=== PATIENT | female | born 1935 | race Caucasian/White ===

== ENCOUNTER 2020-07-25 12:19 | Emergency (ER) | payer MEDICARE, MEDICAID, SELFPAY ==
[2020-07-25 12:27] VITALS: BP 138/67; PULSE 81; RESP 16; TEMP 36.8; O2SAT 100; BMI 27.4
[2020-07-25 12:36] VITALS: O2SAT 96
--- NOTE | 2020-07-25 12:38 | XRR_ITS ---
PROCEDURE INFORMATION: Exam: XR Chest, 1 View Exam date and time: 07/25/2020 12:57 PM Age: 84 years old Clinical indication: Cough and dyspnea; Additional info: Dyspnea/cough TECHNIQUE: Imaging protocol: XR of the chest Views: 1 view. COMPARISON: CR Chest 1 [place] [id number] 05/19/2016 3:17 PM FINDINGS: Lungs: Mild interstitial prominence diffusely possibly chronic. Correlate. Calcified granuloma right upper lobe Pleural space: Unremarkable. No pleural effusion. No pneumothorax. Heart/Mediastinum: Unremarkable. No cardiomegaly. Bones/joints: Unremarkable. XR/XR chest 1V portable [id number] IMPRESSION: Mild interstitial prominence diffusely possibly chronic. Correlate. No focal consolidation. Consider CT if indicated.
--- NOTE | 2020-07-25 12:39 | CT_ITS ---
WS: [id number] CT ABDOMEN PELVIS TECHNIQUE: Contrast-enhanced CT of the abdomen and pelvis with coronal and sagittal reformatted image s. CLINICAL INFORMATION: abd pain COMPARISON: None. DLP: 1450.[address] scans at [facility] use at least one of these dose optimization techniques: automat ed exposure control; mA and/or kV adjustment per patient size (includes targeted exams where dose is matched to clinical indication); or iterative reconstruction. FINDINGS: No comparisons Normal liver. Normal portal vein and splenic vein. Small esophageal hiatal hernia. Normal visualized pancreas. Pancreatic fatty atrophy. Adrenal glands are normal. Normal renal parenchymal enhancement. Renal cortical atrophy. Moderate right hydronephrosis with pelvocaliectasis and dilatation of the pro ximal UPJ. Mid and distal ureter are normal. 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 Peripelvic left renal cysts. Prominent left renal pelvis. Left proximal ureter is normal. No obstr ucting renal or ureteral calculi. Chronic emphysematous changes in the lung bases. Subsegmental atelectasis with interstitial thickenin g lung bases. Trace bilateral pleural fluid. Small esophageal hiatal hernia. Aortic calcification. No aneurysm. Sigmoid constipation. Diverticulosis. No evidence of acute diverticulitis. No free fluid i n the pelvis. Chronic appearing biconcave endplate compression deformities with anterior wedging lowe r thoracic and lumbar spine. CT/CT abdomen pelvis w con* [id number] IMPRESSION: 1. Right hydronephrosis with pelvocaliectasis. Normal right mid and distal ure ter. 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 This may be long-standing and could be followed up with CT urogram. 2. Otherwise normal renal parenchymal enhancement with mild cortical atrophy. 3. Normal caliber abdominal aorta. 4. No free fluid in the abdomen or pelvis. 5. Sigmoid constipation. 6. Subsegmental atelectasis the lung bases with trace pleural fluid. 7. Chronic appearing wedge compression deformities in the lower thoracic and l umbar spine. Notified Konstantin Alejandra DO at 07/25/2020 3:45 PM.
--- NOTE | 2020-07-25 12:39 | CT_ITS ---
WS: [id number] CT HEAD TECHNIQUE: Noncontrast CT of the head obtained from the skullbase to the vertex. CLINICAL INFORMATION: AMS COMPARISON: 6 20,016 DLP: 984.[address] scans at [facility] use at least one of these dose optimization techniques: automat ed exposure control; mA and/or kV adjustment per patient size (includes targeted exams where dose is matched to clinical indication); or iterative reconstruction. FINDINGS: No evidence of intracranial hemorrhage or mass effect. Ventricular system and basal cisterns are brock nt. Moderate small vessel changes with moderate parenchymal volume loss. No extra-axial fluid collect ions. No evidence of mass or mass effect. Normal shankar-white differentiation. Paranasal sinuses and mastoid air cells are well aerated. Prior postoperative changes frontal sinus o uter table craniectomy with mesh fixation. CT/CT head wo con* [id number] IMPRESSION: 1. No evidence of intracranial hemorrhage or mass effect. 2. Moderate small vessel changes. Moderate parenchymal volume loss. 3. Postoperative changes frontal sinus. 4. No acute intracranial findings. Notified Konstantin Alejandra DO at 07/25/2020 3:32 PM.
--- NOTE | 2020-07-25 13:21 | W.ED.AMS ---
HPI - Altered Mental Status General: Chief Complaint: Altered Mental Status Stated Complaint: AMS Time Seen by Provider: 07/25/20 12:25 History of Present Illness: HPI narrative: 84-year-old female altered mental status. Usually she is reported to be at the [facility] ambulatory and somewhat conversational she does have a history of dementia and is in the dementia roberts there is also a history of seizures. She had no witnessed seizures today EMS reported she became more responsive in route to the hospital. When she is here she will answer questions for me but answers them randomly yes and no when asked nonsensical question she still answers yes or no. Even when the response makes no sense. MD complaint: altered mental status and confusion Onset (ago): hour(s) Severity: moderate Consistency of symptoms: Waxing and Waning Context: seizure disorder and other (Dementia) Review of Systems General: Reports: ROS unobtainable due to medical condition and ROS unobtainable due to mental status PFSH ED PFSH: Medical History (Updated 07/25/20 @ 15:52 by Konstantin Alejandra DO) Dementia Seizures Physical Exam Const: COMMON NORMALS: no acute distress HENMT: COMMON NORMALS: normocephalic and atraumatic HEAD & SCALP: normocephalic and atraumatic Eye: COMMON NORMALS: Equal, round and reactive pupils present, conjunctivae normal and no scleral icterus CONJUNCTIVA: Yes conjunctivae normal PUPIL: Yes Equal, round and reactive pupils present Neck/C-Spine: COMMON NORMALS: no JVD Resp: COMMON NORMALS: normal respiratory effort, No retractions, No use of accessory muscles and clear to auscultation bilaterally AUSCULTATION: clear to auscultation bilaterally Cardio: COMMON NORMALS: no JVD, regular rate, regular rhythm and No murmurs present (Cardio) RATE: regular rate RHYTHM: regular rhythm GI: COMMON NORMALS: Soft to palpation and No hepatosplenomegaly present AUSCULTATION: Yes normoactive bowel sounds PALPATION: Yes Soft to palpation, No Tenderness to palpation present (GI), No Guarding due to palpation present (GI) and Yes No hepatosplenomegaly present Extremity: COMMON NORMALS: normal to inspection, capillary refill normal, no clubbing, cyanosis or edema, no calf tenderness and no pedal edema Skin: COMMON NORMALS: no rashes or lesions noted GENERAL SKIN EXAM: no rashes or lesions noted Course Vital Signs: Vital signs: Vital Signs Temperature 98.2 F 07/25/20 12:27 Pulse Rate 99 07/25/20 16:55 Respiratory Rate 20 H 07/25/20 16:55 Blood Pressure 144/87 07/25/20 16:55 Pulse Oximetry 93 07/25/20 16:55 MDM - Altered Mental Status MDM Narrative: Medical decision making narrative: Labs and imaging unremarkable patient appears to be at baseline no signs of infection discharge back to nursing room Lab Data: Labs: Lab Results 07/25/20 07/25/20 07/25/20 Range/Units 13:24 13:24 13:24 WBC 8.9 (4.0-10.0) 10^3/ uL RBC 4.97 (4.1-5.3) 10^6/u L Hgb 14.4 (11.5-15.3) g/dL Hct 48.2 H (37.0-47.0) % MCV 97.0 (81-99) fL MCH 29.0 (28.0-34.0) pg MCHC 29.9 L (30.0-36.0) g/dL RDW 14.4 (12.1-15.1) % Plt Count 261 (130-400) 10^3/c mm MPV 10.2 (7.4-10.4) fL Neut % (Auto) 72.3 % Lymph % (Auto) 14.0 % [place] % (Auto) 9.9 % Eos % (Auto) 2.8 % Baso % (Auto) 0.5 % Neut # (Auto) 6.43 (1.8-7.7) 10^3/u L Lymph # (Auto) 1.2 (0.8-4.8) 10^3/u L King[place] # (Auto) 0.9 (0.2-0.9) 10^3/u L Eos # (Auto) 0.3 (0.0-0.8) 10^3/u L Baso # (Auto) 0.0 (0.0-0.1) 10^3/u L Nucleated RBC % (a uto) 0 % Nucleated RBCs # 0.0 /100WBC Sodium 138 (136-145) mmol/L Potassium 4.6 (3.5-5.1) mmol/L Chloride 101 (98-107) mmol/L Carbon Dioxide 25 (22-29) mmol/L Anion Gap 16.6 (5-19) BUN 12 (8-23) mg/dL Creatinine 0.5 (0.5-0.9) mg/dL GFR Calculation Not Reportable Glucose 107 (65-115) mg/dL Calculated Osmolal ity 283 L (285-295) mOsm/k g Lactic Acid 2.0 (0.5-2.2) mmol/L Calcium 8.9 (8.5-10.5) mg/dL Magnesium 2.3 (1.7-2.3) mg/dL Total Bilirubin 0.2 (0.15-1.2) mg/dL AST 27 (0-32) U/L ALT 25 (0-33) U/L Alkaline Phosphata se 132 H (35-105) IU/L Creatine Kinase 50 (26-192) U/L Total Protein 7.0 (6.6-8.7) g/dL Albumin 3.7 (3.5-5.2) g/dL Globulin 3.3 (1.3-4.6) g/dL Lipase 46 (13-60) U/L Urine Color (Yellow) Urine Appearance (CLEAR) Urine pH (5-7) Ur Specific Gravit y (1.005-1.030) Urine Protein (Negative) Urine Glucose (UA) (Normal) Urine Ketones (Negative) Urine Blood (Negative) Urine Nitrate (Negative) Urine Bilirubin (NEGATIVE) Urine Urobilinogen (Negative) mg/dL Ur Leukocyte Akanksha ase (Negative) Urine RBC (0-2) /hpf Urine WBC (0-5) /hpf Ur Squamous Epith Cells (0-5) Ur Transition Epit h Cell /hpf Amorphous Sediment Urine Bacteria (NONE) 07/25/20 Range/Units 14:35 WBC (4.0-10.0) 10^3/ uL RBC (4.1-5.3) 10^6/u L Hgb (11.5-15.3) g/dL Hct (37.0-47.0) % MCV (81-99) fL MCH (28.0-34.0) pg MCHC (30.0-36.0) g/dL RDW (12.1-15.1) % Plt Count (130-400) 10^3/c mm MPV (7.4-10.4) fL Neut % (Auto) % Lymph % (Auto) % Kingman % (Auto) % Eos % (Auto) % Baso % (Auto) % Neut # (Auto) (1.8-7.7) 10^3/u L Lymph # (Auto) (0.8-4.8) 10^3/u L Kingman # (Auto) (0.2-0.9) 10^3/u L Eos # (Auto) (0.0-0.8) 10^3/u L Baso # (Auto) (0.0-0.1) 10^3/u L Nucleated RBC % (a uto) % Nucleated RBCs # /100WBC Sodium (136-145) mmol/L Potassium (3.5-5.1) mmol/L Chloride (98-107) mmol/L Carbon Dioxide (22-29) mmol/L Anion Gap (5-19) BUN (8-23) mg/dL Creatinine (0.5-0.9) mg/dL GFR Calculation Glucose (65-115) mg/dL Calculated Osmolal ity (285-295) mOsm/k g Lactic Acid (0.5-2.2) mmol/L Calcium (8.5-10.5) mg/dL Magnesium (1.7-2.3) mg/dL Total Bilirubin (0.15-1.2) mg/dL AST (0-32) U/L ALT (0-33) U/L Alkaline Phosphata se (35-105) IU/L Creatine Kinase (26-192) U/L Total Protein (6.6-8.7) g/dL Albumin (3.5-5.2) g/dL Globulin (1.3-4.6) g/dL Lipase (13-60) U/L Urine Color Yellow (Yellow) Urine Appearance Hazy A (CLEAR) Urine pH 7 (5-7) Ur Specific Gravit y 1.015 (1.005-1.030) Urine Protein Neg (Negative) Urine Glucose (UA) Norm (Normal) Urine Ketones Negative (Negative) Urine Blood Neg (Negative) Urine Nitrate Negative (Negative) Urine Bilirubin Neg (NEGATIVE) Urine Urobilinogen Norm (Negative) mg/dL Ur Leukocyte Akanksha ase Negative (Negative) Urine RBC 0-4 H (0-2) /hpf Urine WBC None (0-5) /hpf Ur Squamous Epith Cells 10-15 H (0-5) Ur Transition Epit h Cell 0-4 /hpf Amorphous Sediment 1+ Urine Bacteria 1+ H (NONE) Discharge Plan Discharge Patient Disposition: Home Clinical Impression: Dementia Condition: Stable Prescriptions: No Action acetaminophen 325 mg Tablet 650 mg PO Q6H PRN (Reason: Pain) RF: 0 donepezil 5 mg Tablet 10 mg PO BEDTIME RF: 0 trihexyphenidyl 0.4 mg/mL Elixir 2 mg PO DAILY RF: 0 hydrocodone-acetaminophen 5-325 mg Tablet 1 tab PO BID PRN (Reason: Pain) RF: 0 Zofran 4 mg Tablet 4 mg PO Q6H PRN (Reason: Nausea) RF: 0 Senna-S 8.6-50 mg Tablet 1 tab-cap PO BID RF: 0 Dilantin Extended 100 mg Capsule 200 mg PO BID RF: 0 guaifenesin 100 mg/5 mL Liquid 200 mg PO Q4H PRN (Reason: Cough) RF: 0 Milk of Magnesia 400 mg/5 mL Suspension 400 mg PO DAILY PRN (Reason: Constipation) RF: 0 Dulcolax (bisacodyl) 10 mg Suppository 10 mg NH DAILY PRN (Reason: constipation) RF: 0 aspirin 81 mg Tablet,Chewable 81 mg PO DAILY RF: 0 acetaminophen 80 mg Suppository 80 mg NH Q6H PRN (Reason: Fever) RF: 0 Risperdal 0.5 mg Tablet 0.5 mg PO BID RF: 0 calcitonin (salmon) 200 unit/mL Solution 200 unit IM DAILY RF: 0 Risperdal Consta 12.5 mg/2 mL Suspension,Extended Rel Recon 12.5 mg IM Q10D RF: 0 Artificial Tears (PF) 0.1-0.3 % Dropperette 1 drp OPHTHALMIC (EYE) DAILY RF: 0 28 mg iron- 800 mcg Tablet 1 tab PO DAILY RF: 0 Discharge Orders: Discharge Order (Routine); Ordered 07/25/20 Ordered By: Konstantin Alejandra Discharge Diet: Usual diet Discharge Activity: Resume usual activity Discharge Date/Time: 07/25/20 17:11 Coding Level of Care Code 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
[2020-07-25 13:26] VITALS: BP 146/84; PULSE 88; RESP 19; O2SAT 93
[2020-07-25 13:31] LABS: Basophils % 0.5 %; Eosinophils # 0.3 10^3/uL (0.0-0.8); Eosinophils % 2.8 %; Hematocrit 48.2 % (37.0-47.0); Hemoglobin 14.4 g/dL (11.5-15.3); Lymphocytes # 1.2 10^3/uL (0.8-4.8); Mean Corpuscular HGB Conc 29.9 g/dL (30.0-36.0); Mean Platelet Volume 10.2 fL (7.4-10.4); Monocytes # 0.9 10^3/uL (0.2-0.9); Monocytes % 9.9 %; Neutrophils # 6.43 10^3/uL (1.8-7.7); Neutrophils % 72.3 %; Nucleated Red Blood Cells % 0 %; Platelet Count 261 10^3/cmm (130-400); Red Blood Count 4.97 10^6/uL (4.1-5.3); Red Cell Distribution Width 14.4 % (12.1-15.1); White Blood Count 8.9 10^3/uL (4.0-10.0)
[2020-07-25] MEDS: sodium chloride 0.9% 500 ML 999 ML IV (14:05)
[2020-07-25 14:07] VITALS: BP 137/64; PULSE 85; RESP 17; O2SAT 94
[2020-07-25 15:02] LABS: Alanine Aminotransferase 25 U/L (0-33); Albumin Level 3.7 g/dL (3.5-5.2); Alkaline Phosphatase 132 IU/L (35-105); Blood Urea Nitrogen 12 mg/dL (8-23); Calcium 8.9 mg/dL (8.5-10.5); Carbon Dioxide 25 mmol/L (22-29); Chloride 101 mmol/L (98-107); Creatine Phosphokinase 50 U/L (26-192); Globulin 3.3 g/dL (1.3-4.6); Glucose 107 mg/dL (65-115); Lipase 46 U/L (13-60); Magnesium 2.3 mg/dL (1.7-2.3); Osmolality Calculated 283 mOsm/kg (285-295); Sodium 138 mmol/L (136-145); Total Bilirubin 0.2 mg/dL (0.15-1.2)
[2020-07-25 15:07] LABS: Anion Gap 16.6 (5-19)
[2020-07-25 15:08] LABS: Aspartate Amino Transferase 27 U/L (0-32); Potassium 4.6 mmol/L (3.5-5.1)
[2020-07-25 15:08] LABS: Add Urine Microscopic? YES; Bilirubin Urine Neg (NEGATIVE); Blood Urine Neg (Negative); Glucose Urine UA Norm (Normal); Ketones Urine Negative (Negative); Leukocyte Esterase Urine Negative (Negative); Nitrate Urine Negative (Negative); Protein Urine Neg (Negative); Specific Gravity, Urine 1.015 (1.005-1.030); Urine Appearance Hazy (CLEAR); Urine Color Yellow (Yellow); Urobilinogen Urine Norm (Negative); pH Urine 7 (5-7)
--- NOTE | 2020-07-25 15:08 | PC.NURSE ---
pt to CT by stretcher with tech
[2020-07-25] MEDS: iohexol 300 mg/mL 100 mL Btl IV (15:16)
[2020-07-25 15:25] LABS: Add Urine Culture? No; Amorphous Sediment Urine 1+; RBC Urine 0-4 /hpf (0-2)
[2020-07-25 15:26] LABS: Bacteria Urine 1+; Transitional Epi Cells Urine 0-4 /hpf
[2020-07-25 16:00] VITALS: BP 136/64; PULSE 90; RESP 17; O2SAT 95
[2020-07-25 16:55] VITALS: BP 144/87; PULSE 99; RESP 20; O2SAT 93
== END 2020-07-25 17:11 | disposition home or self-care (01) ==
PROVIDERS: Emergency Provider Family Medicine; Family Provider Nurse Practitioner Family
DX: F03.90 Unspecified dementia, unspecified severity, without behavioral disturbance, psychotic disturbance, mood disturbance, and anxiety (principal); Z79.82 Long term (current) use of aspirin
CPT/HCPCS: 12345; 36415; 51701; 70450; 71045; 74177; 80053; 81001; 82550; 83605; 83690; 83735; 85025; 87040; 96360; 96361; 99283; 99284; J7040; Q9967

== ENCOUNTER 2021-08-05 14:19 | Emergency (ER) | payer MEDICARE, MEDICAID, SELFPAY ==
[2021-08-05 14:24] VITALS: BP 122/54; PULSE 86; RESP 18; TEMP 36.4; O2SAT 97; BMI 20.9
--- NOTE | 2021-08-05 14:30 | ECG_ITS ---
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
--- NOTE | 2021-08-05 14:31 | XRR_ITS ---
PROCEDURE INFORMATION: Exam: XR Chest Exam date and time: 08/05/2021 2:31 PM Age: 85 years old Clinical indication: Cough; Patient HX: PT unable to give history; Additional info: Shortness of breath TECHNIQUE: Imaging protocol: XR of the chest. Views: 1 view. COMPARISON: CR XR chest 1V portable [id number] 07/25/2020 1:04 PM FINDINGS: Lungs: There is continue interstitial prominence compatible with fibrosis with slightly increased interstitial markings compared to the prior study compatible with progression of fibrosis versus superimposed bronchitis, viral pneumonitis or mild interstitial edema. No lobar consolidation. Mild enlargement of the right hilum is unchanged. Pleural spaces: Unremarkable. No pleural effusion. No pneumothorax. Heart/Mediastinum: Unremarkable. No cardiomegaly. Bones/joints: No acute abnormality. XR/XR chest 1V portable [id number] IMPRESSION: There is continue interstitial prominence compatible with fibrosis with slightly increased interstitial markings compared to the prior study compatible with progression of fibrosis versus superimposed bronchitis, viral pneumonitis or mild interstitial edema.
--- NOTE | 2021-08-05 14:48 | W.ED.SOB ---
Documented by User: Konstantin Alejandra DO 08/08/21 12:48 HPI - SOB/Dyspnea General: Chief Complaint: Shortness of Breath/Dyspnea Stated Complaint: CHF EXACERBATION Time Seen by Provider: 08/05/21 14:38 History of Present Illness: HPI Narrative: 85 yo female present to the ER with complaint of [facility] the [facility]. Complaining of a history of CHF with productive cough of clear fluid increasing swelling of the lower extremities. She is not had a fever she had a rapid Covid test this morning at the prison which was negative. She has moderate amount of dementia. She is on 2 L of oxygen by nasal cannula which is her standard her sats are maintaining normal. MD elicited complaint: shortness of breath and cough Pertinent past history: congestive heart failure Onset (ago): hour(s) Timing: constant Severity: mild Exacerbating factors: nothing Relieving factors: nothing Known history of: congestive heart failure Associated symptoms: Reports chest congestion, cough and orthopnea; Deny abdominal pain, chest pain, diaphoresis, dizziness, extremity pain, fever(s), hemoptysis, lightheadedness, myalgias, nausea, palpitations, paresthesias, polydipsia, polyuria, rash, sense of impending doom, syncope or vomiting Treatment prior to arrival: oxygen Review of Systems Const: Denies: fever(s) or diaphoresis ENMT: Denies: throat pain, ear or mastoid pain, nasal discharge or nasal congestion Card: Reports: orthopnea; Denies: chest pain, palpitations, lightheadedness or syncope Resp: Reports: chest congestion; Denies: hemoptysis GI: Denies: abdominal pain, nausea or vomiting : Denies: flank pain, difficulty voiding, dysuria, urinary frequency or urinary urgency Musc: Denies: extremity pain Skin/Breast: Denies: rash or pruritus Neuro: Denies: dizziness Endo: Denies: polyuria or polydipsia PFSH ED PFSH: Medical History Dementia Seizures Physical Exam Const: COMMON NORMALS: no acute distress GENERAL APPEARANCE: cooperative and comfortable HENMT: COMMON NORMALS: normocephalic, atraumatic and hearing grossly normal bilaterally HEAD & SCALP: normocephalic and atraumatic Neck/C-Spine: COMMON NORMALS: no JVD Resp: COMMON NORMALS: normal respiratory effort, No retractions and No use of accessory muscles AUSCULTATION: crackles Cardio: COMMON NORMALS: no JVD, regular rate, regular rhythm and No murmurs present (Cardio) RATE: regular rate RHYTHM: regular rhythm GI: COMMON NORMALS: Soft to palpation and No hepatosplenomegaly present AUSCULTATION: Yes normoactive bowel sounds PALPATION: Yes Soft to palpation, No Tenderness to palpation present (GI), No Guarding due to palpation present (GI) and Yes No hepatosplenomegaly present Extremity: COMMON NORMALS: normal to inspection and no calf tenderness GENERAL: Yes edema (Bilateral lower extremity) Skin: COMMON NORMALS: no rashes or lesions noted GENERAL SKIN EXAM: no rashes or lesions noted Course Vital Signs: Vital signs: Vital Signs Temperature 97.6 F 08/05/21 21:19 Pulse Rate 77 08/05/21 21:19 Respiratory Rate 18 08/05/21 21:19 Blood Pressure 132/65 08/05/21 21:19 Pulse Oximetry 98 08/05/21 21:19 MDM - SOB/Dyspnea MDM Narrative: Medical decision making narrative: Care turned over to Dr. Astorga at change of see his note for final diagnosis and disposition. Lab Data: Labs: Lab Results 08/05/21 08/05/21 08/05/21 Range/Units 15:35 15:35 15:35 WBC 9.3 (4.0-10.0) 10^3/ uL RBC 4.35 (4.1-5.3) 10^6/u L Hgb 13.1 (11.5-15.3) g/dL Hct 43.0 (37.0-47.0) % MCV 98.9 (81-99) fl MCH 30.1 (28.0-34.0) pg MCHC 30.5 (30.0-36.0) g/dL RDW 13.4 (12.1-15.1) % Plt Count 333 (130-400) 10^3/c mm MPV 9.5 (7.4-10.4) fL Neut % (Auto) 69.5 % Lymph % (Auto) 17.3 % [place] % (Auto) 9.8 % Eos % (Auto) 2.7 % Baso % (Auto) 0.4 % Neut # (Auto) 6.43 (1.8-7.7) 10^3/u L Lymph # (Auto) 1.6 (0.8-4.8) 10^3/u L [place] # (Auto) 0.9 (0.2-0.9) 10^3/u L Eos # (Auto) 0.3 (0.0-0.8) 10^3/u L Baso # (Auto) 0.0 (0.0-0.1) 10^3/u L Nucleated RBC % (a uto) 0 % Nucleated RBCs # 0.0 /100WBC Sodium 142 (136-145) mmol/L Potassium 4.7 (3.5-5.1) mmol/L Chloride 103 (98-107) mmol/L Carbon Dioxide 30 H (22-29) mmol/L Anion Gap 13.7 (5-19) BUN 17 (8-23) mg/dL Creatinine 0.4 L (0.5-0.9) mg/dL GFR Calculation Not Reportable Glucose 121 H (65-115) mg/dL Calculated Osmolal ity 297 H (285-295) mOsm/k g Calcium 8.4 L (8.5-10.5) mg/dL Total Bilirubin 0.2 (0.15-1.2) mg/dL AST 20 (0-32) U/L ALT 19 (0-33) U/L Alkaline Phosphata se 114 H (35-105) IU/L Troponin T Gen 5 n g/L Cancelled Troponin T Baselin e (0-10) ng/L Troponin T 120 Min [place] (0-10) ng/L Delta Troponin T (0-10) ABS# NT-Pro-B Natriuret Pep (0-450) pg/mL Total Protein 6.3 L (6.6-8.7) g/dL Albumin 3.5 (3.5-5.2) g/dL Globulin 2.8 (1.3-4.6) g/dL 08/05/21 08/05/21 08/05/21 Range/Units 15:35 15:35 17:41 WBC (4.0-10.0) 10^3/ uL RBC (4.1-5.3) 10^6/u L Hgb (11.5-15.3) g/dL Hct (37.0-47.0) % MCV (81-99) fl MCH (28.0-34.0) pg MCHC (30.0-36.0) g/dL RDW (12.1-15.1) % Plt Count (130-400) 10^3/c mm MPV (7.4-10.4) fL Neut % (Auto) % Lymph % (Auto) % [place] % (Auto) % Eos % (Auto) % Baso % (Auto) % Neut # (Auto) (1.8-7.7) 10^3/u L Lymph # (Auto) (0.8-4.8) 10^3/u L [place] # (Auto) (0.2-0.9) 10^3/u L Eos # (Auto) (0.0-0.8) 10^3/u L Baso # (Auto) (0.0-0.1) 10^3/u L Nucleated RBC % (a uto) % Nucleated RBCs # /100WBC Sodium (136-145) mmol/L Potassium (3.5-5.1) mmol/L Chloride (98-107) mmol/L Carbon Dioxide (22-29) mmol/L Anion Gap (5-19) BUN (8-23) mg/dL Creatinine (0.5-0.9) mg/dL GFR Calculation Glucose (65-115) mg/dL Calculated Osmolal ity (285-295) mOsm/k g Calcium (8.5-10.5) mg/dL Total Bilirubin (0.15-1.2) mg/dL AST (0-32) U/L ALT (0-33) U/L Alkaline Phosphata se (35-105) IU/L Troponin T Gen 5 n g/L Troponin T Baselin e 26 H (0-10) ng/L Troponin T 120 Min [place] 20.95 H (0-10) ng/L Delta Troponin T -5.05 L (0-10) ABS# NT-Pro-B Natriuret Pep 387 (0-450) pg/mL Total Protein (6.6-8.7) g/dL Albumin (3.5-5.2) g/dL Globulin (1.3-4.6) g/dL Discharge Plan Discharge Patient Disposition: Home Clinical Impression: Chest pain Qualifiers: Chest pain type: unspecified Qualified Code(s): R07.9 - Chest pain, unspecified Dyspnea Qualifiers: Dyspnea type: unspecified Qualified Code(s): R06.00 - Dyspnea, unspecified Condition: Stable Prescriptions: No Action donepezil 5 mg Tablet 10 mg PO BEDTIME@1999 RF: 0 trihexyphenidyl 0.4 mg/mL Elixir 2 mg PO DAILY@799 RF: 0 hydrocodone-acetaminophen 5-325 mg Tablet 1 tab PO BID@ RF: 0 ondansetron HCl [Zofran] 4 mg Tablet 4 mg PO Q6H PRN (Reason: Nausea) RF: 0 sennosides-docusate sodium [Senna-S] 8.6-50 mg Tablet 1 tab-cap PO BID@ RF: 0 phenytoin sodium extended [Dilantin Extended] 100 mg Capsule 200 mg PO BID@ RF: 0 guaifenesin 100 mg/5 mL Liquid 200 mg PO Q4H PRN (Reason: Cough) RF: 0 magnesium hydroxide [Milk of Magnesia] 400 mg/5 mL Suspension 400 mg PO DAILY PRN (Reason: Constipation) RF: 0 bisacodyl [Dulcolax (bisacodyl)] 10 mg Suppository 10 mg MS DAILY PRN (Reason: constipation) RF: 0 risperidone [Risperdal] 0.5 mg Tablet 0.5 mg PO DAILY@0800 RF: 0 Risperdal Consta 12.5 mg/2 mL Suspension,Extended Rel Recon 12.5 mg IM Q10D RF: 0 PNV cmb#95-ferrous fumarate-FA [] 28 mg iron- 800 mcg Tablet 1 tab PO DAILY@0800 RF: 0 potassium chloride 10 mEq Tablet Extended Release 10 meq PO DAILY@0800 RF: 0 levothyroxine 50 mcg tablet 50 mcg PO DAILY RF: 0 Lasix 20 mg Tablet 20 mg PO DAILY@0800 RF: 0 Miralax 17 gram/dose Powder 17 g PO BID@ RF: 0 Zyprexa 5 mg Tablet 5 mg PO DAILY RF: 0 Risperdal 0.25 mg Tablet 0.25 mg PO BEDTIME@1999 RF: 0 triamcinolone acetonide 0.1 % Cream 1 applic TOPICAL BID PRN (Reason: RED, FLAKY AREA) RF: 0 Discharge Orders: Discharge ED (Routine); Ordered 08/05/21 Ordered By: Macrina Astorga Discharge Diet: Advance as tolerated Discharge Activity: Resume usual activity Patient Instructions: Chest Pain (ED), Dyspnea (ED) Coding Level of Care Code ED Business Solutions Director for Chg Fwd Documented by User: Macrina Astorga MD 08/05/21 20:41 HPI - SOB/Dyspnea General: Chief Complaint: Shortness of Breath/Dyspnea Stated Complaint: CHF EXACERBATION Time Seen by Provider: 08/05/21 14:38 PFSH ED PFSH: Medical History Dementia Seizures Course Vital Signs: Vital signs: Vital Signs Temperature 97.6 F 08/05/21 21:19 Pulse Rate 77 08/05/21 21:19 Respiratory Rate 18 08/05/21 21:19 Blood Pressure 132/65 08/05/21 21:19 Pulse Oximetry 98 08/05/21 21:19 MDM - SOB/Dyspnea MDM Narrative: Medical decision making narrative: I took patient over from Dr. Oshea. Patient was [facility] from [facility] with some dyspnea and complaints chest pain. Patient does have severe dementia. His initial repeat troponins are negative and BNP here is normal as well. I did give her 1 dose of IV Lasix and I believe she is stable for discharge back to the prison. She is to follow-up PCP and return if worsening. Lab Data: Labs: Lab Results 08/05/21 08/05/21 08/05/21 Range/Units 15:35 15:35 15:35 WBC 9.3 (4.0-10.0) 10^3/ uL RBC 4.35 (4.1-5.3) 10^6/u L Hgb 13.1 (11.5-15.3) g/dL Hct 43.0 (37.0-47.0) % MCV 98.9 (81-99) fl MCH 30.1 (28.0-34.0) pg MCHC 30.5 (30.0-36.0) g/dL RDW 13.4 (12.1-15.1) % Plt Count 333 (130-400) 10^3/c mm MPV 9.5 (7.4-10.4) fL Neut % (Auto) 69.5 % Lymph % (Auto) 17.3 % [place] % (Auto) 9.8 % Eos % (Auto) 2.7 % Baso % (Auto) 0.4 % Neut # (Auto) 6.43 (1.8-7.7) 10^3/u L Lymph # (Auto) 1.6 (0.8-4.8) 10^3/u L [place] # (Auto) 0.9 (0.2-0.9) 10^3/u L Eos # (Auto) 0.3 (0.0-0.8) 10^3/u L Baso # (Auto) 0.0 (0.0-0.1) 10^3/u L Nucleated RBC % (a uto) 0 % Nucleated RBCs # 0.0 /100WBC Sodium 142 (136-145) mmol/L Potassium 4.7 (3.5-5.1) mmol/L Chloride 103 (98-107) mmol/L Carbon Dioxide 30 H (22-29) mmol/L Anion Gap 13.7 (5-19) BUN 17 (8-23) mg/dL Creatinine 0.4 L (0.5-0.9) mg/dL GFR Calculation Not Reportable Glucose 121 H (65-115) mg/dL Calculated Osmolal ity 297 H (285-295) mOsm/k g Calcium 8.4 L (8.5-10.5) mg/dL Total Bilirubin 0.2 (0.15-1.2) mg/dL AST 20 (0-32) U/L ALT 19 (0-33) U/L Alkaline Phosphata se 114 H (35-105) IU/L Troponin T Gen 5 n g/L Cancelled Troponin T Baselin e (0-10) ng/L Troponin T 120 Min [place] (0-10) ng/L Delta Troponin T (0-10) ABS# NT-Pro-B Natriuret Pep (0-450) pg/mL Total Protein 6.3 L (6.6-8.7) g/dL Albumin 3.5 (3.5-5.2) g/dL Globulin 2.8 (1.3-4.6) g/dL 08/05/21 08/05/21 08/05/21 Range/Units 15:35 15:35 17:41 WBC (4.0-10.0) 10^3/ uL RBC (4.1-5.3) 10^6/u L Hgb (11.5-15.3) g/dL Hct (37.0-47.0) % MCV (81-99) fl MCH (28.0-34.0) pg MCHC (30.0-36.0) g/dL RDW (12.1-15.1) % Plt Count (130-400) 10^3/c mm MPV (7.4-10.4) fL Neut % (Auto) % Lymph % (Auto) % [place] % (Auto) % Eos % (Auto) % Baso % (Auto) % Neut # (Auto) (1.8-7.7) 10^3/u L Lymph # (Auto) (0.8-4.8) 10^3/u L [place] # (Auto) (0.2-0.9) 10^3/u L Eos # (Auto) (0.0-0.8) 10^3/u L Baso # (Auto) (0.0-0.1) 10^3/u L Nucleated RBC % (a uto) % Nucleated RBCs # /100WBC Sodium (136-145) mmol/L Potassium (3.5-5.1) mmol/L Chloride (98-107) mmol/L Carbon Dioxide (22-29) mmol/L Anion Gap (5-19) BUN (8-23) mg/dL Creatinine (0.5-0.9) mg/dL GFR Calculation Glucose (65-115) mg/dL Calculated Osmolal ity (285-295) mOsm/k g Calcium (8.5-10.5) mg/dL Total Bilirubin (0.15-1.2) mg/dL AST (0-32) U/L ALT (0-33) U/L Alkaline Phosphata se (35-105) IU/L Troponin T Gen 5 n g/L Troponin T Baselin e 26 H (0-10) ng/L Troponin T 120 Min [place] 20.95 H (0-10) ng/L Delta Troponin T -5.05 L (0-10) ABS# NT-Pro-B Natriuret Pep 387 (0-450) pg/mL Total Protein (6.6-8.7) g/dL Albumin (3.5-5.2) g/dL Globulin (1.3-4.6) g/dL Imaging Data^: CXR: Attestation: I personally reviewed and interpreted this imaging study as follows: Radiologist's impression: [address] [address] XRay Report Signed Patient: Alber Vergara Unit #: [id number] : 1935 Age/Sex: 85 / F ADM Date: 08/05/21 Loc: ER Room/Bed: Attending Dr: Ordering Provider/Ordering MD: Konstantin Alejandra DO Date of Service: 08/05/21 Procedure(s): XR chest 1V portable [id number] Accession Number(s): [id number] Report Number: [id number] PROCEDURE INFORMATION: Exam: XR Chest Exam date and time: 08/05/2021 2:31 PM Age: 85 years old Clinical indication: Cough; Patient HX: PT unable to give history; Additional info: Shortness of breath TECHNIQUE: Imaging protocol: XR of the chest. Views: 1 view. COMPARISON: CR XR chest 1V portable [id number] 07/25/2020 1:04 PM FINDINGS: Lungs: There is continue interstitial prominence compatible with fibrosis with slightly increased interstitial markings compared to the prior study compatible with progression of fibrosis versus superimposed bronchitis, viral pneumonitis or mild interstitial edema. No lobar consolidation. Mild enlargement of the right hilum is unchanged. Pleural spaces: Unremarkable. No pleural effusion. No pneumothorax. Heart/Mediastinum: Unremarkable. No cardiomegaly. Bones/joints: No acute abnormality. XR/XR chest 1V portable [id number] IMPRESSION: There is continue interstitial prominence compatible with fibrosis with slightly increased interstitial markings compared to the prior study compatible with progression of fibrosis versus superimposed bronchitis, viral pneumonitis or mild interstitial edema. Dictated By: Lorelei Morrell Signed By: Lorelei Morrell Signed Date/Time: 08/05/211521 DD/ 19 Discharge Plan Discharge Patient Disposition: Home Clinical Impression: Chest pain Qualifiers: Chest pain type: unspecified Qualified Code(s): R07.9 - Chest pain, unspecified Dyspnea Qualifiers: Dyspnea type: unspecified Qualified Code(s): R06.00 - Dyspnea, unspecified Condition: Stable Prescriptions: No Action donepezil 5 mg Tablet 10 mg PO BEDTIME@1999 RF: 0 trihexyphenidyl 0.4 mg/mL Elixir 2 mg PO DAILY@0800 RF: 0 hydrocodone-acetaminophen 5-325 mg Tablet 1 tab PO BID@799,1999 RF: 0 ondansetron HCl [Zofran] 4 mg Tablet 4 mg PO Q6H PRN (Reason: Nausea) RF: 0 sennosides-docusate sodium [Senna-S] 8.6-50 mg Tablet 1 tab-cap PO BID@799,1999 RF: 0 phenytoin sodium extended [Dilantin Extended] 100 mg Capsule 200 mg PO BID@ RF: 0 guaifenesin 100 mg/5 mL Liquid 200 mg PO Q4H PRN (Reason: Cough) RF: 0 magnesium hydroxide [Milk of Magnesia] 400 mg/5 mL Suspension 400 mg PO DAILY PRN (Reason: Constipation) RF: 0 bisacodyl [Dulcolax (bisacodyl)] 10 mg Suppository 10 mg MS DAILY PRN (Reason: constipation) RF: 0 risperidone [Risperdal] 0.5 mg Tablet 0.5 mg PO DAILY@0800 RF: 0 Risperdal Consta 12.5 mg/2 mL Suspension,Extended Rel Recon 12.5 mg IM Q10D RF: 0 PNV cmb#95-ferrous fumarate-FA [] 28 mg iron- 800 mcg Tablet 1 tab PO DAILY@0800 RF: 0 potassium chloride 10 mEq Tablet Extended Release 10 meq PO DAILY@0800 RF: 0 levothyroxine 50 mcg tablet 50 mcg PO DAILY RF: 0 Lasix 20 mg Tablet 20 mg PO DAILY@0800 RF: 0 Miralax 17 gram/dose Powder 17 g PO BID@0800,1999 RF: 0 Zyprexa 5 mg Tablet 5 mg PO DAILY RF: 0 Risperdal 0.25 mg Tablet 0.25 mg PO BEDTIME@1999 RF: 0 triamcinolone acetonide 0.1 % Cream 1 applic TOPICAL BID PRN (Reason: RED, FLAKY AREA) RF: 0 Discharge Orders: Discharge ED (Routine); Ordered 08/05/21 Ordered By: Macrina Astorga Discharge Diet: Advance as tolerated Discharge Activity: Resume usual activity Patient Instructions: Chest Pain (ED), Dyspnea (ED) Coding Level of Care Code ED Business Solutions Director for Vikas Thomason
[2021-08-05 14:59] VITALS: PULSE 77; RESP 12; O2SAT 98
[2021-08-05 15:40] LABS: Basophils % 0.4 %; Eosinophils # 0.3 10^3/uL (0.0-0.8); Eosinophils % 2.7 %; Hemoglobin 13.1 g/dL (11.5-15.3); Lymphocytes # 1.6 10^3/uL (0.8-4.8); Lymphocytes % 17.3 %; Mean Corpuscular HGB Conc 30.5 g/dL (30.0-36.0); Mean Corpuscular Hemoglobin 30.1 pg (28.0-34.0); Mean Corpuscular Volume 98.9 fl (81-99); Mean Platelet Volume 9.5 fL (7.4-10.4); Monocytes # 0.9 10^3/uL (0.2-0.9); Monocytes % 9.8 %; Neutrophils # 6.43 10^3/uL (1.8-7.7); Neutrophils % 69.5 %; Nucleated Red Blood Cells % 0 %; Platelet Count 333 10^3/cmm (130-400); Red Blood Count 4.35 10^6/uL (4.1-5.3); Red Cell Distribution Width 13.4 % (12.1-15.1); White Blood Count 9.3 10^3/uL (4.0-10.0)
[2021-08-05 16:04] LABS: Alanine Aminotransferase 19 U/L (0-33); Albumin Level 3.5 g/dL (3.5-5.2); Alkaline Phosphatase 114 IU/L (35-105); Anion Gap 13.7 (5-19); Aspartate Amino Transferase 20 U/L (0-32); Blood Urea Nitrogen 17 mg/dL (8-23); Calcium 8.4 mg/dL (8.5-10.5); Carbon Dioxide 30 mmol/L (22-29); Chloride 103 mmol/L (98-107); Creatinine Clr Calc Pharmacy 48.8948; Globulin 2.8 g/dL (1.3-4.6); Glucose 121 mg/dL (65-115); Osmolality Calculated 297 mOsm/kg (285-295); Potassium 4.7 mmol/L (3.5-5.1); Sodium 142 mmol/L (136-145); Total Bilirubin 0.2 mg/dL (0.15-1.2); Total Protein 6.3 g/dL (6.6-8.7)
[2021-08-05 16:34] LABS: Troponin(5th) Baseline 26 ng/L (0-10)
[2021-08-05 18:07] LABS: Troponin 5 2HR 20.95 ng/L (0-10)
[2021-08-05 18:12] LABS: Troponin 5 2HR Delta -5.05 ABS# (0-10)
--- NOTE | 2021-08-05 18:12 | ECG_ITS ---
[facility] Test Date: 2021-08-05 Pat Name: Alber Vergara Department: Room: Gender: Female [employer]: : 1935 Requested By: Konstantin Gillis Order Number: [id number] Reading MD: CORDELIA LOUIS Measurements Intervals [place] Rate: 78 P: 26 RI: 170 QRS: -12 QRSD: 81 T: 30 QT: 378 QTc: 432 Interpretive Statements SINUS RHYTHM MINIMAL VOLTAGE CRITERIA FOR LVH, CONSIDER NORMAL VARIANT [MEETS CRITERIA IN ONE OF: R(aVL), S(V1), R(V5), R(V5/V6)+S(V1)] Compared to ECG 08/05/2021 14:42:16 No significant changes Electronically Signed On 08-05-2021 18:35:06 CDT by CORDELIA LOUIS [email or web address]
[2021-08-05 19:28] VITALS: BP 132/65; RESP 18
[2021-08-05 20:11] LABS: NT Pro B Type Natriuretic Pept 387 pg/mL (0-450)
--- NOTE | 2021-08-05 20:40 | PC.NURSE ---
report called to care home at this time.
[2021-08-05] MEDS: FUROsemide 10 mg/mL SDV 4mL 40 MG IVP (20:51)
[2021-08-05 21:19] VITALS: BP 132/65; PULSE 77; RESP 18; TEMP 36.4; O2SAT 98
== END 2021-08-05 21:20 | disposition home or self-care (01) ==
PROVIDERS: Family Medicine; Emergency Provider Emergency Medicine
DX: R07.9 Chest pain, unspecified (principal); R06.00 Dyspnea, unspecified; F03.90 Unspecified dementia, unspecified severity, without behavioral disturbance, psychotic disturbance, mood disturbance, and anxiety
CPT/HCPCS: 71045; 80053; 83880; 84484; 85025; 93005; 96374; 99284; J1940